=== PATIENT | male | born 1995 | race Two or more races ===

== ENCOUNTER 2020-11-26 12:22 | Emergency (ER) | payer MEDICAID ==
[~2020-11-26] VITALS: Ht 185.4 cm; Wt 122.5 kg
[2020-11-26 13:06] LABS: Basophils # (auto) 0 10 ^3/uL (0-0.2); Eosinophils # (auto) 0.1 10 ^3/uL (0-0.8); Eosinophils % (auto) 0.7 % (0.0-7.0); Lymphocytes # (auto) 1.9 10 ^3/uL (0.4-5.4); Monocytes # (auto) 1.1 10 ^3/uL (0-1.3); Monocytes % (auto) 7.7 % (0.0-12.0); Neutrophils % (auto) 77.7 % (37.0-80.0)
[2020-11-26 13:07] LABS: Basophils % (auto) 0.2 % (0.0-2.0); Hemoglobin 17.9 g/dL (13.5-17.5); Lymphocytes % (auto) 13.7 % (10.0-50.0); Mean Corpuscular Hgb Conc. 33.8 g/dL (32.0-36.0); Mean Corpuscular Volume 85.8 fL (80.0-100.0); Platelet Count (auto) 348 10^3/uL (140-450); Red Blood Cells 6.18 10^6/uL (4.5-5.90); Red Cell Distribution Width 13.7 % (11.8-14.3); White Blood Cell 14.1 10^3/uL (4.4-10.8)
[2020-11-26 13:09] LABS: Albumin 4.2 g/dL (3.4-5.0); Calcium 9.1 mg/dL (8.5-10.1); Potassium 3.5 mmol/L (3.5-5.1)
[2020-11-26 13:13] LABS: BUN/Creatinine Ratio 15.3; Bilirubin, Total 0.4 mg/dL (0.2-1.0); Total Protein 8.8 g/dL (6.4-8.2)
[2020-11-26 13:20] LABS: Urine Bacteria NONE SEEN /hpf (None Seen); Urine Blood 1+ /uL (Negative); Urine Hyaline Cast FEW /lpf (0 - 2); Urine Mucus FEW (None Seen); Urine Specific Gravity 1.031 (1.001-1.035); Urine WBC 1 /hpf (0 - 3)
[2020-11-26 14:03] LABS: Magnesium 2.4 mg/dL (1.6-2.6)
[2020-11-26 14:23] LABS: INR 1.03 (0.9-1.15); Partial Thromboplastin Time 33.4 sec (23.0-31.2)
[2020-11-26 14:29] LABS: Amphetamine Screen, Urine NEGATIVE (NEGATIVE); Barbiturate Scree,Urine NEGATIVE (NEGATIVE); Benzodiazephine Screen, Urine NEGATIVE (NEGATIVE); Cannabinoid Screen, Urine NEGATIVE (NEGATIVE); Cocaine Screen, Urine NEGATIVE (NEGATIVE); Opiate Scree,Urine NEGATIVE (NEGATIVE); Phencyclidine Screen, Urine NEGATIVE (NEGATIVE)
[2020-11-26] MEDS ORDERED: PANTOPRAZOLE 40 MG TAB PO ONE (14:45)
[2020-11-26 16:54] VITALS: BP 148/70
== END 2020-11-26 16:56 | disposition home or self-care (01) ==
LOC: ER 12:22
DX: K52.9 Noninfective gastroenteritis and colitis, unspecified (principal)
CPT/HCPCS: 36415; 74176; 80053; 80307; 81001; 82150; 83690; 83735; 85025; 85610; 85730